=== PATIENT | male | born 1955 | race Caucasian/White ===

== ENCOUNTER → 2019-06-04 09:04 | Outpatient (BNVA) | payer BC, SELFPAY | PROVIDERS: Family Provider Internal Medicine; PCP Internal Medicine; Referring Provider Internal Medicine; Visit Provider Internal Medicine Rheumatology | DX: M06.4 Inflammatory polyarthropathy (principal); M10.9 Gout, unspecified; Z79.899 Other long term (current) drug therapy; Z11.59 Encounter for screening for other viral diseases; E11.9 Type 2 diabetes mellitus without complications; M19.90 Unspecified osteoarthritis, unspecified site; Z79.52 Long term (current) use of systemic steroids | CPT/HCPCS: 36415; 82565; 86140; 86705; 86706; 86709; 86803; 87340; 99214 ==

== ENCOUNTER → 2019-06-04 10:23 | Outpatient (BNVA) | payer BC, SELFPAY | PROVIDERS: Family Provider Internal Medicine; PCP Internal Medicine; Referring Provider Internal Medicine; Visit Provider Internal Medicine Rheumatology | DX: E11.9 Type 2 diabetes mellitus without complications (principal); Z79.899 Other long term (current) drug therapy; M19.90 Unspecified osteoarthritis, unspecified site; M10.9 Gout, unspecified; M06.4 Inflammatory polyarthropathy | CPT/HCPCS: 83036; 85025 ==

== ENCOUNTER 2019-07-18 10:54 | Outpatient (CLI) | payer BC, SELFPAY ==
[2019-07-18 11:42] LABS: Prostate Specific Antigen Scr 1.79 ng/mL (0-4)
[2019-07-18 12:58] LABS: Alanine Aminotransferase 34 U/L (0-41); Albumin Level 4.1 g/dL (3.5-5.2); Alkaline Phosphatase 74 IU/L (40-130); Aspartate Amino Transferase 29 U/L (0-40); Globulin 3.2 g/dL (1.3-4.6); Total Bilirubin 0.8 mg/dL (0.15-1.2); Total Protein 7.3 g/dL (6.6-8.7)
== END 2019-07-18 10:55 | disposition home or self-care (01) ==
LOC: LAB 10:59
PROVIDERS: Family Provider Internal Medicine; PCP Internal Medicine; Visit Provider Internal Medicine Rheumatology
DX: M10.9 Gout, unspecified (principal); Z12.5 Encounter for screening for malignant neoplasm of prostate; Z79.899 Other long term (current) drug therapy
CPT/HCPCS: 80076; G0103

== ENCOUNTER → 2019-12-29 08:12 | Outpatient (BNVA) | payer BC, SELFPAY | PROVIDERS: Family Provider Internal Medicine; PCP Internal Medicine; Referring Provider Dermatology; Visit Provider Dermatology | DX: D48.9 Neoplasm of uncertain behavior, unspecified (principal); L57.0 Actinic keratosis; D23.9 Other benign neoplasm of skin, unspecified; D23.30 Other benign neoplasm of skin of unspecified part of face; L82.1 Other seborrheic keratosis; D69.2 Other nonthrombocytopenic purpura; B35.1 Tinea unguium | CPT/HCPCS: 11102; 11103; 17000; 17003; 88304; 88305; 99203; 99204 ==

== ENCOUNTER 2020-04-19 18:04 | Outpatient (CLI) | payer BC, SELFPAY ==
[2020-04-19 18:18] LABS: Basophils % 0.5 %; Eosinophils % 0.3 %; Hematocrit 47.4 % (42.0-52.0); Hemoglobin 16.3 g/dL (11.7-16.6); Lymphocytes # 0.9 10^3/uL (0.8-4.8); Lymphocytes % 14.8 %; Mean Corpuscular HGB Conc 34.4 g/dL (30.0-36.0); Mean Corpuscular Hemoglobin 36.1 pg (28.0-34.0); Mean Corpuscular Volume 105.1 fL (80-94); Mean Platelet Volume 10.5 fL (7.4-10.4); Monocytes # 0.5 10^3/uL (0.2-0.9); Monocytes % 8.5 %; Neutrophils # 4.54 10^3/uL (1.8-7.7); Neutrophils % 75.7 %; Nucleated Red Blood Cells % 0 %; Platelet Count 153 10^3/cmm (130-400); Red Blood Count 4.51 10^6/uL (4.1-5.3); Red Cell Distribution Width 11.9 % (12.1-15.1)
[2020-04-19 18:38] LABS: Alanine Aminotransferase 112 U/L (0-41); Albumin Level 4.3 g/dL (3.5-5.2); Alkaline Phosphatase 90 IU/L (40-130); Aspartate Amino Transferase 62 U/L (0-40); C Reactive Protein 4.2 mg/L (0.0-4.9); Chol HDL Ratio 4.07 mg/dL (1.0-5.00); Cholesterol 220 mg/dL (0-200); Globulin 2.5 g/dL (1.3-4.6); Glomerular Filtration Rate 136.1 mL/min (90-130); HDL Cholesterol 54 mg/dL (60-100); LDL Cholesterol Calculated 113 mg/dL (50-129); LDL HDL Ratio 2.09 RATIO (0.00-3.22); Total Bilirubin 1.1 mg/dL (0.15-1.2); Total Protein 6.8 g/dL (6.6-8.7); Triglycerides 265 mg/dL (0-150)
[2020-04-19 19:04] LABS: Estmated Average Glucose 197; Hemoglobin A1C 8.5 % (4.0-6.0)
[2020-04-19 19:09] LABS: Erythrocyte Sedimentation Rate 10 mm/hr (0-10)
== END 2020-04-19 18:05 | disposition home or self-care (01) ==
LOC: LAB 18:05
PROVIDERS: PCP Internal Medicine; Visit Provider Internal Medicine Rheumatology
DX: E11.9 Type 2 diabetes mellitus without complications (principal); M06.00 Rheumatoid arthritis without rheumatoid factor, unspecified site; M19.90 Unspecified osteoarthritis, unspecified site; Z79.899 Other long term (current) drug therapy
CPT/HCPCS: 36415; 80061; 80076; 82565; 83036; 85025; 85651; 86140

== ENCOUNTER → 2020-04-20 10:38 | Outpatient (BNVA) | payer BC, SELFPAY | PROVIDERS: PCP Internal Medicine; Visit Provider Internal Medicine Rheumatology | DX: M10.9 Gout, unspecified (principal); M06.00 Rheumatoid arthritis without rheumatoid factor, unspecified site; Z79.899 Other long term (current) drug therapy; G56.01 Carpal tunnel syndrome, right upper limb; E11.9 Type 2 diabetes mellitus without complications; R74.01 Elevation of levels of liver transaminase levels; Z87.891 Personal history of nicotine dependence | CPT/HCPCS: 99214 ==

== ENCOUNTER → 2021-10-31 16:28 | Outpatient (BNVA) | payer MEDICARE, BC, SELFPAY | PROVIDERS: PCP Internal Medicine; Visit Provider Internal Medicine | DX: E11.9 Type 2 diabetes mellitus without complications (principal); M06.00 Rheumatoid arthritis without rheumatoid factor, unspecified site; Z65.8 Other specified problems related to psychosocial circumstances; F98.8 Other specified behavioral and emotional disorders with onset usually occurring in childhood and adolescence; M10.9 Gout, unspecified; Z79.899 Other long term (current) drug therapy; M19.90 Unspecified osteoarthritis, unspecified site | CPT/HCPCS: 80053; 83036; 84443; 85025 ==

== ENCOUNTER → 2025-04-13 13:57 | Outpatient (BNVA) | payer MEDICARE, SELFPAY | PROVIDERS: PCP Internal Medicine; Visit Provider Internal Medicine Cardiovascular Disease | DX: Z53.8 Procedure and treatment not carried out for other reasons (principal) | CPT/HCPCS: 93005 ==